=== PATIENT | female | born 1950 | race Caucasian/White ===

== ENCOUNTER 2017-02-08 13:37 | Outpatient (CLI) | payer MEDICARE, BC | END 2017-02-08 13:38 | disposition home or self-care (01) | LOC: CTENTCT 13:37 | PROVIDERS: ATTEND Nurse Practitioner Family | DX: J34.2 Deviated nasal septum (principal) | CPT/HCPCS: 70486 ==

== ENCOUNTER 2017-02-16 07:15 | Day surgery (SDC) | payer MEDICARE, BC ==
[2017-02-15 10:34] VITALS: BMI 22.8
[2017-02-16] MEDS ORDERED: Oxymetazoline HCl 0.05% ( 15 ML ) ONE ×2 (09:09→10:01)
[2017-02-16 09:34] LABS: Hemoglobin 15.2 g/dL (12.0-16.0)
[2017-02-16 09:55] LABS: Anion Gap 13 mmol/L (10-20); BUN (Urea Nitrogen) 9 mg/dL (9.8-20.1); Calc. Creatinine Clearance 77 mL/min (70-130); Calcium 10.7 mg/dL (7.8-10.44); Carbon Dioxide 24 mmol/L (23-31); Chloride 108 mmol/L (98-107); Estimated GFR-MDRD 83; Glucose 103 mg/dL (80-115); Sodium 141 mmol/L (136-145)
[2017-02-16] MEDS ORDERED: Lidocaine 1% w/Epinephrine 1:200K 30 ML VIAL ONE (10:00)
[2017-02-16] MEDS ORDERED: Bacitracin Zinc Ointment 30 gm TUBE ONE (10:01)
[2017-02-16] MEDS ORDERED: Fentanyl 100 MCG/2 ML VIAL ONE ×3 (10:02→11:47)
[2017-02-16] MEDS ORDERED: Midazolam HCl 2 mg/2 ml Vial ONE (10:02)
[2017-02-16] MEDS ORDERED: traMADol HCl 50 MG TAB ONE (12:45)
[2017-02-16] MEDS ORDERED: Morphine 4 MG/ML VIAL ONE (12:45)
--- NOTE | 2017-02-16 15:54 | EKG ---
Test Reason : PREOP Blood Pressure : / mmHG Vent. Rate : 062 BPM Atrial Rate : 062 BPM P-R Int : 116 ms QRS Dur : 090 ms QT Int : 404 ms P-R-T Axes : 047 076 038 degrees QTc Int : 410 ms Normal sinus rhythm Nonspecific ST abnormality Abnormal ECG No previous ECGs available Confirmed by MARCELINO DURBIN ([id number]) on 02/16/2017 3:53:49 PM Referred By: MARIO Confirmed By:MARCELINO DURBIN
[2017-02-16] MEDS ORDERED: Propofol 200 MG/20 ML VIAL ONE (16:58)
[2017-02-16] MEDS ORDERED: PHENYLEPHRINE-NS 100 MCG/ML 10 ML SYRINGE ONE (16:58)
[2017-02-16] MEDS ORDERED: Glycopyrrolate 0.2 MG/ML 5 ML SYRINGE ONE (16:58)
[2017-02-16] MEDS ORDERED: Dexamethasone 20 MG/5 ML VIAL ONE (16:58)
[2017-02-16] MEDS ORDERED: Lidocaine 1% PF 5 ML VIAL ONE (16:58)
[2017-02-16] MEDS ORDERED: Ondansetron HCl/PF 4 MG/2 ML Vial ONE (16:58)
--- NOTE | 2017-02-17 11:50 | OP ---
PREOPERATIVE DIAGNOSES: Deviated septum with hypertrophic inferior turbinates and chronic recurrent sinusitis and pansinusitis. PREOPERATIVE DIAGNOSES: Deviated septum with hypertrophic inferior turbinates and chronic recurrent sinusitis and pansinusitis. PROCEDURES PERFORMED: 1. Septoplasty. 2. Bilateral nasal endoscopy with submucosal resection. 3. Bilateral nasal endoscopy with frontal sinusotomy. 4. Bilateral nasal endoscopy with total ethmoidectomy. 5. Bilateral nasal endoscopy with maxillary antrostomy. 6. Bilateral nasal endoscopy with sphenoidotomy. FINDINGS: The patient had diffuse mucosal disease bilaterally involving all sinuses. PROCEDURE IN DETAIL: After consent was obtained, the patient was identified, brought to the operatin g room, and placed on the operating room table in the supine position. Consent was obtained, notifyi ng the patient of the possibility of additional infections, bleeding, brain injury, and eye/orbital i njury. The patient was placed on the operating room table, and general endotracheal anesthesia and intravenous access was obtained. The patient was then positioned, prepped and draped for endoscopic sinus surgery. Nasal preparation included trimming nasal vestibular hairs and spraying in topical Af rin. We then placed Afrin topical solution on nasal pledgets and strategically located them intranas ally. The perinasal mucosa was injected with 1% lidocaine with 1:100,000 epinephrine in the submucop erichondrial plane of the septum, lateral nasal wall, and anterior to the uncinate. The patient was then prepped and draped in a sterile fashion and positioned for endoscopic sinus surgery. (Endoscopic Sinus Surgery) With the 0-degree endoscope, the patient underwent systematic nasal endoscopy. There were no suspici ous internasal masses or lesions identified. We then focused our attention to the osteomeatal comple x region under the middle turbinate. (Benito Bullosa) The benito bullosa was identified and entered with a sickle blade. The lateral aspect of the benito bullosa was meticulously resected while leaving the medial most aspect to form the new middle turbina te. Attention was made not to violate the mucosa. The straight biting punches and micro-debrider we re used to remove shrouds of mucosa and bony debris. (Maxillary Antrostomy) The uncinate was then identified and the extent of the uncinate was appreciated by out-fracturing the uncinate with the ball-tip probe. We then used the sickle blade to disarticulate the uncinate from the lateral nasal wall. This was then removed with straight biting and upbiting punches with the rem aining shrouds of mucosa and bony septum removed with the micro-debrider. The natural os of the maxi llary sinus was then identified and enlarged with the maxillary punches and back biting forceps. (Total Ethmoidectomy) The anterior face of the ethmoid bulla was entered and with the micro-debrider, dissection continued posteriorly to the ground lamella. The limits of dissection included the insertion of the middle tur binate, medial orbital wall, and base of skull. We similarly identified the frontal recess and remov ed shrouds of bone and debris in that region to obtain patency into the agger nasi region and frontal recess. We then entered the ground lamella and its anteroinferior aspect and proceeded posteriorly, opening the posterior ethmoid air-cell system. Again, the limits of dissection included the base of skull and medial orbital wall. (Sphenoidotomy) The anterior face of the sphenoid was identified and entered in its extreme anteroinferior aspect. A sphenoid punch was then used to enlarge the sphenoidotomy and no injury to the optic nerve or commercial internship al carotid artery occurred. (Outfracture of the Inferior Turbinates) The inferior turbinates were visualized under endoscopic visualization and outfractured with the elev ator. The inferolateral edge of the inferior turbinate was then cauterized along its length with the suction cautery without difficulty. (Outfracture & Cautery of the Inferior Turbinates) The inferior turbinates were visualized with a 0-degree endoscope and outfractured with a Kenia eleva tor. The inferior medial aspect was cauterized with the electrocautery. Hemostasis was obtained . After adequate airway was established, we turned our attention to the contralateral side and used a s imilar procedure. Again, a Kenia elevator was used to outfracture inferior turbinates under endoscop ic visualization. With a suction cautery, the free inferior medial aspect was cauterized under direc t visualization along the length of the inferior turbinate. (Septoplasty) After local anesthesia was infiltrated into the submucoperichondrial plane, a standard Shivam incisi on was made with a #15 blade down to the level of the septal cartilage. The caudal elevator was used to elevate the mucoperichondrium from the underlying cartilage. We then proceeded beyond the bony c artilaginous junction and elevated the bony periosteum as well. Great attention was paid to the spur to prevent rent formation in the septal flap. A transcartilaginous incision was then made, while pre serving an adequate dorsal and caudal cartilaginous strut for tip support. The deformed cartilage wa s removed and disarticulated from the bony cartilaginous junction and maxillary crest. This was plac ed in saline and would later be crushed and returned to the mucoperichondrial envelope. We then elev ated the contralateral periosteum from the bony cartilaginous region and removed the deformed portion s of the bone and bony spurs. The cartilage was then crushed and placed back into the mucoperichondr ial envelope and the mucosa was re-approximated with a quilting stitch composed of rapidly absorbent gut suture. The Gahanna incision was also closed with interrupted gut suture. At the completion of the case, Campbell splints were placed and suture secured to the caudal septum. At this point, we then turned our attention to the contralateral side and proceeded with endoscopic s inus surgery. At the completion of the case, Rice keel splints were placed in the ethmoid cavities after the ethmoi dectomy. There were no complications. The patient tolerated the procedure well and was discharged t o the recovery room in stable condition prior to return to the preoperative Day Stay with [facility]. Prescriptions for pain medication and antibiotics were provided. The patient received intramuscular Depo-Medrol during the case.
== END 2017-02-16 13:26 | disposition home or self-care (01) ==
LOC: SDC 07:15
PROVIDERS: ATTEND Specialist
PROC: 09TV8ZZ Resection of Left Ethmoid Sinus, Via Natural or Artificial Opening Endoscopic (ICD-10-PCS; principal; 2017-02-16)
PROC: 09TU8ZZ Resection of Right Ethmoid Sinus, Via Natural or Artificial Opening Endoscopic (ICD-10-PCS; 2017-02-16)
PROC: 099T8ZZ Drainage of Left Frontal Sinus, Via Natural or Artificial Opening Endoscopic (ICD-10-PCS; 2017-02-16)
PROC: 099S8ZZ Drainage of Right Frontal Sinus, Via Natural or Artificial Opening Endoscopic (ICD-10-PCS; 2017-02-16)
PROC: 099R8ZZ Drainage of Left Maxillary Sinus, Via Natural or Artificial Opening Endoscopic (ICD-10-PCS; 2017-02-16)
PROC: 099Q8ZZ Drainage of Right Maxillary Sinus, Via Natural or Artificial Opening Endoscopic (ICD-10-PCS; 2017-02-16)
PROC: 099X8ZZ Drainage of Left Sphenoid Sinus, Via Natural or Artificial Opening Endoscopic (ICD-10-PCS; 2017-02-16)
PROC: 099W8ZZ Drainage of Right Sphenoid Sinus, Via Natural or Artificial Opening Endoscopic (ICD-10-PCS; 2017-02-16)
PROC: 09BM8ZZ Excision of Nasal Septum, Via Natural or Artificial Opening Endoscopic (ICD-10-PCS; 2017-02-16)
DX: J32.4 Chronic pansinusitis (principal); J34.3 Hypertrophy of nasal turbinates; J34.2 Deviated nasal septum; J45.909 Unspecified asthma, uncomplicated; Z88.2 Allergy status to sulfonamides; Z88.5 Allergy status to narcotic agent; Z91.041 Radiographic dye allergy status; Z90.710 Acquired absence of both cervix and uterus; Z90.722 Acquired absence of ovaries, bilateral; Z98.890 Other specified postprocedural states; Z87.19 Personal history of other diseases of the digestive system; Z87.891 Personal history of nicotine dependence; Z82.49 Family history of ischemic heart disease and other diseases of the circulatory system; Z83.3 Family history of diabetes mellitus
CPT/HCPCS: 80048; 85014; 85018; 93005; 93010; 96374; 96375; J1100; J2001; J2250; J2270; J2405; J2704; J3010

== ENCOUNTER 2018-08-07 10:34 | Outpatient (CLI) | payer MEDICARE, BC ==
--- NOTE | 2018-08-07 11:23 | CT ---
Noncontrast enhanced CT chest. HISTORY: Patient with multiple year history of smoking. Low dose CT lung screening. Images demonstrate tiny 3 to 4 mm nodules in the right middle lobe and lingula. These are stable and unchanged since the previous exam. No definite evidence of newly developed masses or lesions seen. Minimal aortic calcification seen. No other masses or lesions are noted. Continue with annual screening low dose CT for evaluation. IMPRESSION: Lung rads category 2-benign appearance continue annual low-dose screening chest CT. Transcribed Date/Time: 08/07/2018 11:34 AM
== END 2018-08-07 10:35 | disposition home or self-care (01) ==
LOC: CT 10:34
PROVIDERS: ATTEND Family Medicine
DX: Z87.891 Personal history of nicotine dependence (principal)
CPT/HCPCS: G0297

== ENCOUNTER 2018-08-09 12:42 | Outpatient (CLI) | payer MEDICARE, BC ==
--- NOTE | 2018-08-09 14:35 | MRI ---
Exam: MRI CERVICAL SPINE WITHOUT CONTRAST: HISTORY: Cervical spondylosis. Neck pain with bilateral hand numbness, x30 years.. COMPARISON: None FINDINGS: Type I and type II Modic changes at C5-C6 and C6-C7. Overall, appropriate T1 marrow signal intensity of the cervical vertebra. No fractures. 2.3 mm of anterolisthesis of C4 upon C5. No significant STIR hyperintensity to suggest vertebral body edema or ligamentous injury. Visualized brain parenchyma, cervical medullary junction, cervical cord and the upper thoracic cord h ave a normal size and signal intensity C2-C3: Central disc protrusion. No significant central canal stenosis or neural foraminal narrowing C3-C4: Generalized disc bulge with a central disc protrusion. Mild central canal stenosis. Mild right and moderate left foraminal narrowing due to uncovertebral and facet hypertrophy. C4-C5: Broad-based disc osteophyte complex effaces the subarachnoid space. There is flattening and de forming the cervical cord. Moderate central canal stenosis. Moderate to severe bilateral foraminal narrowing. C5-C6: Broad-based disc osteophyte complex with a central/right paracentral component. There is mass effect upon the midline and right aspect of the cervical cord, without T2 hyperintensity. Mild central canal stenosis. Severe right and mild to moderate left foraminal narrowing. C6-C7: Broad-based disc osteophyte complex abuts the thecal sac. Ventral subarachnoid space is nearly effaced. Mild flattening of the ventral cord. At least mild central canal stenosis. Severe bilateral foraminal narrowing. C7-T1: No significant central canal stenosis. Right neural foramen is patent. Mild left foraminal tong rowing There appears to be grade 1 anterolisthesis of T1 upon T2 and T2 upon T3. IMPRESSION: 1. Degenerative changes of the cervical spine as described above. There is moderate central canal glenn nosis at C4-C5. Moderate to severe bilateral neural foraminal narrowing at C4-C5. Severe right foraminal narrowing at C5-C6. 2. Varying degrees of neural foraminal narrowing as detailed above. Transcribed Date/Time: 08/09/2018 3:18 PM
--- NOTE | 2018-08-09 16:20 | MRI ---
MRI LUMBAR SPINE NONCONTRAST: DATE: 08/09/18 HISTORY: 68-year-old female with lumbar spondylosis with myelopathy, Q76.2. COMPARISON: None. FINDINGS: For the purposes of this report, it will be assumed that there are 5 lumbar-type vertebrae. The vert ebral body heights are maintained. Conus medullaris terminates at L2. No severe disc space narrowing at any level. No bone marrow signal abnormality. The findings by individual levels are as follows: T12-L1: Essentially normal. L1-2: Essentially normal. L2-3: No high grade central or high grade neural foraminal stenosis. L3-4: Mild to moderate ligamentum flavum thickening. Mild facet DJD. Mild to moderate bilateral neura l foraminal stenosis. Mild disc bulge. Mild to moderate central spinal canal stenosis. L4-5: Moderate diffuse disc bulge. Severe right neural foraminal stenosis. Moderate to severe left ne ural foraminal stenosis. Moderate ligamentum flavum thickening and moderate bilateral facet DJD. Late ral recess stenosis bilaterally. Moderate central spinal canal stenosis. L5-S1: Severe bilateral facet DJD with hypertrophy and bilateral facet joint effusions. This results in grade I anterolisthesis of L5 on S1. Prominent diffuse disc bulge. Posterior midline annular fissu re. Moderate right neural foraminal stenosis. Severe left neural foraminal stenosis. Severe lateral r ecess stenosis bilaterally. Severe central spinal canal stenosis. Moderate ligamentum flavum thickeni ng. IMPRESSION: 1. Severe lateral recess stenosis bilaterally with chronic impingement on bilateral S1 nerve kt ts, severe left neural foraminal stenosis, and severe central spinal canal stenosis, at L5-S1, due to a combination of grade I spondylolisthesis, severe bilateral facet osteoarthrosis, and prominent dif fuse disc bulge. 2. Severe right neural foraminal stenosis and moderate central spinal canal stenosis at L4-5. 3. Lumbar spondylosis. KAREN R POS: JONATHAN
== END 2018-08-09 12:43 | disposition home or self-care (01) ==
LOC: TBSIIMAG 12:42
PROVIDERS: ATTEND Neurological Surgery
DX: M47.12 Other spondylosis with myelopathy, cervical region (principal); M47.16 Other spondylosis with myelopathy, lumbar region; M48.061 Spinal stenosis, lumbar region without neurogenic claudication; M48.07 Spinal stenosis, lumbosacral region; M43.16 Spondylolisthesis, lumbar region; M43.17 Spondylolisthesis, lumbosacral region; M51.06 Intervertebral disc disorders with myelopathy, lumbar region; M47.817 Spondylosis without myelopathy or radiculopathy, lumbosacral region; M48.02 Spinal stenosis, cervical region; M48.03 Spinal stenosis, cervicothoracic region
CPT/HCPCS: 72141; 72148

== ENCOUNTER 2018-08-21 10:34 | Outpatient (CLI) | payer MEDICARE, BC ==
--- NOTE | 2018-08-21 13:26 | MRI ---
MRI THORACIC SPINE NONCONTRAST: DATE: 08/21/2018. HISTORY: A 68-year-old female with R07.9, thoracalgia. FINDINGS: There is mildly exaggerated kyphosis of the upper thoracic spine. Thoracic spinal cord is normal in size and signal. No syrinx. No significant central spinal canal stenosis at any level. No definite high-grade neural foraminal stenosis identified at any level. Bone marrow signal is normal. No hig h-grade degenerative disk disease at any level. Tiny right paracentral disk protrusion or disk-osteo phyte complex at T8-9 abuts the ventral surface of the cord. Perivertebral spaces are unremarkable. Conus medullaris terminates at L1-2. IMPRESSION: 1. Mildly exaggerated upper thoracic kyphosis. 2. Tiny disc protrusion at T8-9. 3. Otherwise negative. POS: [facility]
== END 2018-08-21 10:35 | disposition home or self-care (01) ==
LOC: TBSIIMAG 10:34
PROVIDERS: ATTEND Neurological Surgery
DX: M47.12 Other spondylosis with myelopathy, cervical region (principal); M54.6 Pain in thoracic spine; M51.04 Intervertebral disc disorders with myelopathy, thoracic region; M40.204 Unspecified kyphosis, thoracic region
CPT/HCPCS: 72146

== ENCOUNTER 2019-08-13 13:26 | Outpatient (CLI) | payer MEDICARE, BC ==
--- NOTE | 2019-08-13 14:40 | CT ---
EXAM: CT Pulmonary Lung Scan PROVIDED CLINICAL HISTORY: Tobacco abuse. Cough. COMPARISON: 08/07/2018 and 31/05/2015 FINDINGS: Few pleural-based nodules are seen in the right upper, right middle, and right lower lobe which measu re 3 to 4 mm in size. No new pulmonary nodule or mass is seen in the lungs bilaterally. There is a curvilinear slight nodular density seen posterior aspect of the left upper lobe which was seen on prior exams and is also stable when compared to prior studies including exam in 2016. This could relate to focal area of scarring. Mild pleural and parenchymal scarring is seen at each lung apex. Calcified granuloma is again seen in the lingula. Lack of intravenous contrast limits evaluation of the mediastinal structures as well as vasculature. Vascular calcifications are seen in the thoracic aorta and in the coronary arteries. There has been no significant interval change compared to prior exam. A few of the nodules do appear slightly larger in size compared to prior study, but this could be related to slice selection. IMPRESSION: Lung RADS category 2-benign appearance. Continued annual screening evaluation was low-dose CT scan in 12 months is recommended.
== END 2019-08-13 13:27 | disposition home or self-care (01) ==
LOC: BICCT 13:26
PROVIDERS: ATTEND Family Medicine
DX: Z12.2 Encounter for screening for malignant neoplasm of respiratory organs (principal); R91.8 Other nonspecific abnormal finding of lung field; Z87.891 Personal history of nicotine dependence
CPT/HCPCS: G0297

== ENCOUNTER 2021-05-13 09:02 | Outpatient (CLI) | payer MEDICARE, BC | END 2021-05-13 09:03 | disposition home or self-care (01) | LOC: TBSIIMAG 09:02 | PROVIDERS: ATTEND Neurological Surgery | DX: M48.062 Spinal stenosis, lumbar region with neurogenic claudication (principal); M43.16 Spondylolisthesis, lumbar region; Z98.1 Arthrodesis status; Z98.890 Other specified postprocedural states | CPT/HCPCS: 72100 ==

== ENCOUNTER 2021-07-01 13:25 | Outpatient (CLI) | payer MEDICARE, BC | END 2021-07-01 13:26 | disposition home or self-care (01) | LOC: TBSIIMAG 13:25 | PROVIDERS: ATTEND Physician Assistant | DX: M48.062 Spinal stenosis, lumbar region with neurogenic claudication (principal); M54.50 Low back pain, unspecified | CPT/HCPCS: 72100 ==